=== PATIENT | female | born 1995 | race Two or more races ===

== ENCOUNTER 2017-10-05 15:48 | Emergency (ER) | payer MEDICAID ==
[~2017-10-05] VITALS: Ht 162.6 cm; Wt 84.8 kg
[2017-10-05] MEDS ORDERED: ONDANSETRON 2MG/ML, 2ML ONE (16:29)
[2017-10-05] MEDS ORDERED: PLEASE ENTER ALLERGIES MC SCH (16:30)
[2017-10-05] MEDS ORDERED: SODIUM CHLORIDE 0.9% 1,000ML IVBOLUS ONE (16:30)
[2017-10-05] MEDS ORDERED: MORPHINE SULFATE 4 MG/ML, 1ML IVPush PRN (16:30)
[2017-10-05] MEDS ORDERED: ONDANSETRON 2MG/ML, 2ML IVPush ONE (16:30)
[2017-10-05] MEDS ORDERED: SODIUM CHLORIDE FLUSH 10ML SYR IVF ONE (16:30)
[2017-10-05] MEDS ORDERED: MORPHINE SULFATE 4 MG/ML, 1ML ONE (16:30)
[2017-10-05 16:33] LABS: BASOPHILS # (AUTO) 0.01 x10^3/uL (0-0.3); BASOPHILS % (AUTO) 0 % (0-1); EOSINOPHILS # (AUTO) 0.04 x10^3/uL (0-0.8); EOSINOPHILS % (AUTO) 0 % (1-7); LYMPHOCYTES # (AUTO) 0.69 x10^3/uL (1-6.1); LYMPHOCYTES % (AUTO) 6 % (22-44); MD NO; MEAN CORPUSCULAR HGB CONC 33.8 g/dL (32.4-35.8); MEAN CORPUSCULAR VOLUME 91.6 fL (80-100); MEAN PLATELET VOLUME 7.9 fL (7.4-10.4); MONOCYTES % (AUTO) 3 % (2-9); NEUTROPHILS # (AUTO) 10.67 x10^3/uL (1.8-8.0); NEUTROPHILS % (AUTO) 91 % (42-75); PLATELET COUNT 270 x10^3/uL (130-400); RED BLOOD COUNT 4.89 x10^6/uL (3.82-5.3); RED CELL DISTRIBUTION WIDTH 12.6 % (9.6-15.2)
[2017-10-05 16:48] LABS: ALANINE AMINOTRANSFERASE 22 U/L (12-78); ALBUMIN 3.9 g/dL (3.4-5.0); ANION GAP 8 mmol/L (5-15); CALCIUM 9.1 mg/dL (8.5-10.1); CHLORIDE 108 mmol/L (98-107); CREATININE 0.98 mg/dL (0.55-1.02)
[2017-10-05 16:53] LABS: ALKALINE PHOSPHATASE 68 U/L (45-117); BILIRUBIN,TOTAL 0.6 mg/dL (0.2-1.0)
[2017-10-05 18:02] LABS: MICROSCOPIC NOT IND
[2017-10-05 18:05] LABS: CULTURE INDICATED? NO
[2017-10-05 18:45] VITALS: BP 117/69
== END 2017-10-05 18:48 | disposition home or self-care (01) ==
LOC: ED 17:03
DX: N93.8 Other specified abnormal uterine and vaginal bleeding (principal); R42 Dizziness and giddiness
CPT/HCPCS: 36415; 76830; 80053; 81003; 83690; 84703; 85025; 96361; 96374; 96375; 99285; J2405; J7030

== ENCOUNTER 2017-12-31 12:33 | Emergency (ER) | payer MEDICAID ==
[~2017-12-31] VITALS: Ht 162.6 cm; Wt 85.5 kg
[2017-12-31 12:46] VITALS: BP 114/79
[2017-12-31] MEDS ORDERED: ACETAMINOPHEN 325 MG TABLET ONE (13:18)
[2017-12-31] MEDS ORDERED: METHOCARBAMOL 750 MG TABLET ONE (13:18)
[2017-12-31] MEDS ORDERED: METHOCARBAMOL 750 MG TABLET PO ONE (13:30)
[2017-12-31] MEDS ORDERED: ACETAMINOPHEN 325 MG TABLET PO ONE (13:30)
== END 2017-12-31 13:09 | disposition home or self-care (01) ==
LOC: ED 13:03
DX: S39.012A Strain of muscle, fascia and tendon of lower back, initial encounter (principal); S66.511A Strain of intrinsic muscle, fascia and tendon of left index finger at wrist and hand level, initial encounter; Z88.8 Allergy status to other drugs, medicaments and biological substances; X50.9XXA Other and unspecified overexertion or strenuous movements or postures, initial encounter; Y93.K1 Activity, walking an animal; Y92.89 Other specified places as the place of occurrence of the external cause; Y99.8 Other external cause status
CPT/HCPCS: 72072; 99283

== ENCOUNTER 2019-05-28 10:12 | Emergency (ER) | payer BC, MEDICAID ==
[~2019-05-28] VITALS: Ht 165.1 cm; Wt 80.3 kg
--- NOTE | 2019-05-28 10:32 | NUR ---
THIS IS A 23 YO F W/ C/O CP 11/01 THAT STARTED IN MID UPPR BACK BUT NOW PRESENT IN LT CHEST. STARTED AT APPROX 0730. PT REPORTS PAIN IS NOW 09/01. REPORTS SOME SOB. DENIES N/V/PALPITATIONS. BP EQUAL BILAT. VS STABLE.CONNECTED TO ALL MONITORING. PT IS RESTING ON [employer] W/ CALL LIGHT IN REACH. DENIES FURTHER NEEDS AT THIS TIME.
[2019-05-28] MEDS ORDERED: KETOROLAC 30 MG/1 ML IM/IV ONE (11:30)
[2019-05-28] MEDS ORDERED: MAALOX/HYOSCYAMINE/LIDOCAINE 45 ML BTL PO ONE (11:30)
[2019-05-28] MEDS ORDERED: KETOROLAC 30 MG/1 ML ONE (11:33)
[2019-05-28] MEDS ORDERED: MAALOX/HYOSCYAMINE/LIDOCAINE 45 ML BTL ONE (11:55)
--- NOTE | 2019-05-28 11:58 | NUR ---
TASK RN, ASSISTING PRIMARY. GI COCKTAIL GIVEN PER ERP ORDER. PT RATES PAIN AT 4/10 AT THIS TIME. CALL LIGHT WITHIN REACH. FAMILY AT BS.
[2019-05-28 12:01] LABS: BASOPHILS # (AUTO) 0.03 x10^3/uL (0-0.1); BASOPHILS % (AUTO) 0 % (0-1); EOSINOPHILS # (AUTO) 0.13 x10^3/uL (0-0.4); EOSINOPHILS % (AUTO) 2 % (1-7); LYMPHOCYTES # (AUTO) 2.13 x10^3/uL (1-3.4); LYMPHOCYTES % (AUTO) 25 % (22-44); MD NO; MEAN CORPUSCULAR HEMOGLOBIN 31.5 pg (27.0-34.8); MEAN CORPUSCULAR HGB CONC 33.7 g/dL (32.4-35.8); MEAN CORPUSCULAR VOLUME 93.4 fL (80-100); MEAN PLATELET VOLUME 8.7 fL (7.4-10.4); MONOCYTES % (AUTO) 5 % (2-9); NEUTROPHILS # (AUTO) 6.04 x10^3/uL (1.8-6.8); NEUTROPHILS % (AUTO) 69 % (42-75); PLATELET COUNT 294 x10^3/uL (130-400); RED BLOOD COUNT 4.46 x10^6/uL (3.82-5.3); RED CELL DISTRIBUTION WIDTH 12.5 % (9.6-15.2)
[2019-05-28 12:17] LABS: ALBUMIN 3.8 g/dL (3.4-5.0); ANION GAP 7 mmol/L (5-15); CALCIUM 8.7 mg/dL (8.5-10.1); CHLORIDE 107 mmol/L (98-107)
[2019-05-28 12:25] LABS: ALANINE AMINOTRANSFERASE 25 U/L (12-78); ALKALINE PHOSPHATASE 54 U/L (45-117); BILIRUBIN,TOTAL 0.2 mg/dL (0.2-1.0); CREATININE 0.91 mg/dL (0.55-1.02); TOTAL PROTEIN 7.6 g/dL (6.4-8.2); TROPONIN I < 0.015 ng/mL (0.000-0.045)
--- NOTE | 2019-05-28 13:51 | NUR ---
CARE FOR DC ONLY PROVIDED. PT SITTING UP ON GURNEY, NO ACUTE DISTRESS NOTED. PT STATES "FEELS BETTER" NO IV TO DC. REVIEWED DC INSTRUCTIONS WITH PT, UNDERSTANDING VERBALIZED. PT LEFT AMB, GAIT STEADY.
[2019-05-28 13:52] VITALS: BP 115/60
== END 2019-05-28 13:54 | disposition home or self-care (01) ==
LOC: ED 13:40
DX: R07.2 Precordial pain (principal); R06.02 Shortness of breath; R94.31 Abnormal electrocardiogram [ECG] [EKG]
CPT/HCPCS: 36415; 71045; 80053; 83880; 84484; 85025; 93005; 96374; 99285; J1885

== ENCOUNTER 2019-10-20 14:33 | Emergency (ER) | payer BC ==
[~2019-10-20] VITALS: Ht 165.1 cm; Wt 89.7 kg
[2019-10-20 15:17] LABS: BASOPHILS # (AUTO) 0.05 x10^3/uL (0-0.1); BASOPHILS % (AUTO) 1 % (0-1); EOSINOPHILS # (AUTO) 0.19 x10^3/uL (0-0.4); EOSINOPHILS % (AUTO) 2 % (1-7); LYMPHOCYTES # (AUTO) 2.67 x10^3/uL (1-3.4); LYMPHOCYTES % (AUTO) 25 % (22-44); MD NO; MEAN CORPUSCULAR HEMOGLOBIN 31.4 pg (27.0-34.8); MEAN CORPUSCULAR HGB CONC 33.3 g/dL (32.4-35.8); MONOCYTES # (AUTO) 0.74 x10^3/uL (0.2-0.8); MONOCYTES % (AUTO) 7 % (2-9); NEUTROPHILS # (AUTO) 7.24 x10^3/uL (1.8-6.8); NEUTROPHILS % (AUTO) 67 % (42-75); PLATELET COUNT 304 x10^3/uL (130-400); RED BLOOD COUNT 4.47 x10^6/uL (3.82-5.3); RED CELL DISTRIBUTION WIDTH 12.2 % (9.6-15.2)
[2019-10-20 15:30] LABS: ALBUMIN 3.6 g/dL (3.4-5.0); ANION GAP 7 mmol/L (5-15); CALCIUM 9.1 mg/dL (8.5-10.1); CHLORIDE 109 mmol/L (98-107)
[2019-10-20 15:34] LABS: MICROSCOPIC INDICATED
[2019-10-20 15:49] LABS: ALANINE AMINOTRANSFERASE 39 U/L (12-78); ALKALINE PHOSPHATASE 44 U/L (45-117); BILIRUBIN,TOTAL 0.2 mg/dL (0.2-1.0); CREATININE 0.69 mg/dL (0.55-1.02); TOTAL PROTEIN 7.6 g/dL (6.4-8.2)
[2019-10-20 15:55] VITALS: BP 107/57
== END 2019-10-20 17:39 | disposition home or self-care (01) ==
LOC: ED 16:23
DX: O26.891 Other specified pregnancy related conditions, first trimester (principal); R10.30 Lower abdominal pain, unspecified; Z3A.00 Weeks of gestation of pregnancy not specified
CPT/HCPCS: 36415; 76801; 80053; 81001; 84702; 85025; 87077; 87086; 87186; 99284

== ENCOUNTER 2019-10-23 14:10 | Emergency (ER) | payer BC ==
[~2019-10-23] VITALS: Ht 165.1 cm; Wt 89.9 kg
--- NOTE | 2019-10-23 14:58 | NUR ---
PROBATION COUNSELOR: NA X 1
--- NOTE | 2019-10-23 15:01 | NUR ---
SENIOR BOOKKEEPER: PT TO ROOM FROM LOBBY AT THIS TIME. NADN. PT AMBULATORY WITH STEADY GAIT
--- NOTE | 2019-10-23 15:13 | NUR ---
PT AMBULATORY TO ROOM 6 W/ C/O CRAMPING. PT STATES SHE IS CURRENTLY 5 WEEKS AND IS HAVING CRAMPING. DENIES VB/DC. PT STATES SHE WAS HERE 2 DAYS AGO FOR SAME. PT RESTING ON KOKI. ADDISON.
[2019-10-23 15:25] LABS: BASOPHILS # (AUTO) 0.02 x10^3/uL (0-0.1); BASOPHILS % (AUTO) 0 % (0-1); EOSINOPHILS # (AUTO) 0.15 x10^3/uL (0-0.4); EOSINOPHILS % (AUTO) 2 % (1-7); LYMPHOCYTES # (AUTO) 2.11 x10^3/uL (1-3.4); LYMPHOCYTES % (AUTO) 21 % (22-44); MD NO; MEAN CORPUSCULAR HEMOGLOBIN 30.9 pg (27.0-34.8); MEAN CORPUSCULAR HGB CONC 32.8 g/dL (32.4-35.8); MEAN PLATELET VOLUME 8.1 fL (7.4-10.4); MONOCYTES # (AUTO) 0.11 x10^3/uL (0.2-0.8); MONOCYTES % (AUTO) 1 % (2-9); NEUTROPHILS # (AUTO) 7.68 x10^3/uL (1.8-6.8); NEUTROPHILS % (AUTO) 76 % (42-75); PLATELET COUNT 271 x10^3/uL (130-400); RED BLOOD COUNT 3.99 x10^6/uL (3.82-5.3); RED CELL DISTRIBUTION WIDTH 12.8 % (9.6-15.2)
[2019-10-23 15:34] LABS: ALBUMIN 3.4 g/dL (3.4-5.0); ANION GAP 5 mmol/L (5-15); CALCIUM 8.6 mg/dL (8.5-10.1); CHLORIDE 113 mmol/L (98-107); CREATININE 0.72 mg/dL (0.55-1.02)
[2019-10-23 15:39] VITALS: BP 110/52
--- NOTE | 2019-10-23 16:03 | NUR ---
PT CHART REVIEWED AND PLACED FOR RECHECK.
[2019-10-23 17:41] LABS: MICROSCOPIC INDICATED
== END 2019-10-23 17:35 | disposition home or self-care (01) ==
LOC: ED 15:36
DX: O20.0 Threatened abortion (principal); R10.84 Generalized abdominal pain; Z3A.01 Less than 8 weeks gestation of pregnancy
CPT/HCPCS: 36415; 76801; 80048; 81001; 82040; 84702; 85025; 99284

== ENCOUNTER 2020-06-11 03:51 | Inpatient (IN) | payer MEDICAID ==
[~2020-06-11] VITALS: Ht 165.1 cm; Wt 108.2 kg
[~2020-06-11 03:51] MED LIST: PREN1TAB60 PO
[2020-06-11 04:19] VITALS: BP 136/76
[2020-06-11] MEDS ORDERED: NEWBORN KIT ONE (05:49)
[2020-06-11] MEDS ORDERED: TERBUTALINE 1 MG/ML, 1ML IVPush PRN (06:00)
[2020-06-11] MEDS: D5%-LACTATED RINGERS 1,000 ML IV SCH ×3 (06:00→22:00)
[2020-06-11] MEDS ORDERED: OXYTOCIN 30U/ 0.9% NaCL 500ML 500 ML IV ONE (06:00)
[2020-06-11] MEDS ORDERED: TERBUTALINE 1 MG/ML, 1ML SQ PRN (06:00)
[2020-06-11] MEDS ORDERED: METOCLOPRAMIDE 5 MG/ML, 2ML IVPush PRN (06:00)
[2020-06-11] MEDS ORDERED: ONDANSETRON 2MG/ML, 2ML IVPush PRN (06:00)
[2020-06-11] MEDS ORDERED: FENTANYL PF 100 MCG/2ML IV PRN (06:00)
[2020-06-11] MEDS ORDERED: OXYTOCIN 30U/ 0.9% NaCL 500ML 500 ML IV PRN (06:00)
[2020-06-11] MEDS ORDERED: CALCIUM CARBONATE 500 MG TAB.CHEW PO PRN (06:00)
[2020-06-11] MEDS ORDERED: LACTATED RINGERS 1,000 ML IVBOLUS PRN (06:00)
[2020-06-11] MEDS ORDERED: SODIUM CITRATE/CITRIC ACID 30 ML UDC PO PRN (06:00)
[2020-06-11 06:48] LABS: BASOPHILS % (AUTO) 0 % (0-1); EOSINOPHILS % (AUTO) 3 % (1-7); LYMPHOCYTES % (AUTO) 20 % (22-44); MEAN CORPUSCULAR HEMOGLOBIN 32.9 pg (27.0-34.8); MEAN CORPUSCULAR HGB CONC 34.6 g/dL (32.4-35.8); MEAN PLATELET VOLUME 8.7 fL (7.4-10.4); MONOCYTES % (AUTO) 6 % (2-9); NEUTROPHILS % (AUTO) 71 % (42-75); PLATELET COUNT 272 x10^3/uL (130-400); RED BLOOD COUNT 3.67 x10^6/uL (3.82-5.3); RED CELL DISTRIBUTION WIDTH 13.9 % (9.6-15.2)
[2020-06-11 06:50] LABS: MD NO
[2020-06-11] MEDS ORDERED: MISOPROSTOL 200 MCG TABLET ONE (06:50)
[2020-06-11] MEDS ORDERED: LIDOCAINE 1%, 20ML ONE (06:50)
[2020-06-11] MEDS: LACTATED RINGERS 1,000 ML IV SCH ×2 (13:21→20:41)
[2020-06-11] MEDS: FENTANYL PF 100 MCG/2ML IVPush PRN ×2 (18:37→22:29)
[2020-06-12] MEDS: FENTANYL PF 100 MCG/2ML IVPush PRN ×2 (01:33→03:08)
[2020-06-12] MEDS: LACTATED RINGERS 1,000 ML IV SCH ×7 (03:51→22:00)
[2020-06-12] MEDS ORDERED: BUPIVACAINE 0.25% ONE (03:53)
[2020-06-12] MEDS ORDERED: FENTANYL/BUPIV./NS/PF 250 ML EPIDCONT ONE (03:53)
[2020-06-12] MEDS ORDERED: NALOXONE 0.4 MG/ML, 1ML IVPush PRN (05:30)
[2020-06-12] MEDS ORDERED: FENTANYL/BUPIV./NS/PF 250 ML EPIDCONT SCH (05:30)
[2020-06-12] MEDS ORDERED: LACTATED RINGERS 1,000 ML IVBOLUS PRN (05:30)
[2020-06-12] MEDS ORDERED: DIPHENHYDRAMINE 50 MG/ML, 1ML IVPush PRN (05:30)
[2020-06-12] MEDS ORDERED: EPHEDRINE 50 MG/ML, 1ML IVPush PRN ×2 (05:30→08:30)
[2020-06-12] MEDS ORDERED: ONDANSETRON 2MG/ML, 2ML IVPush PRN ×2 (05:30→08:30)
[2020-06-12] MEDS: D5%-LACTATED RINGERS 1,000 ML IV SCH ×3 (06:00→22:00)
[2020-06-12] MEDS ORDERED: SODIUM CITRATE/CITRIC ACID 15 ML UDC ONE (06:31)
[2020-06-12] MEDS ORDERED: EPHEDRINE 50 MG/ML, 1ML ONE (07:07)
[2020-06-12] MEDS ORDERED: OXYTOCIN 10 UNITS/ML, 1ML ONE (07:07)
[2020-06-12] MEDS ORDERED: FENTANYL PF 100 MCG/2ML ONE ×2 (07:07→07:27)
[2020-06-12] MEDS ORDERED: DEXAMETHASONE 4 MG/ML, 1ML ONE (07:07)
[2020-06-12] MEDS ORDERED: PHENYLEPHRINE 10 MG/ML ONE (07:07)
[2020-06-12] MEDS ORDERED: ONDANSETRON 2MG/ML, 2ML ONE (07:07)
[2020-06-12] MEDS ORDERED: PROPOFOL 10 MG/ML, 20ML ONE (07:07)
[2020-06-12] MEDS ORDERED: CEFAZOLIN 1,000 MG ONE (07:07)
[2020-06-12] MEDS ORDERED: SUCCINYLCHOLINE 20 MG/ML, 10ML ONE (07:07)
[2020-06-12] MEDS ORDERED: KETOROLAC 30 MG/1 ML ONE ×2 (07:07→14:41)
[2020-06-12] MEDS ORDERED: morphine SULFATE/PF 0.5 MG/ML, 10ML ONE (07:44)
[2020-06-12] MEDS: OXYTOCIN 30U/ 0.9% NaCL 500ML 500 ML IV SCH ×2 (08:00→18:00)
[2020-06-12] MEDS ORDERED: CARBOPROST TROMETHAMINE 250 MCG/ML, 1ML IM PRN (08:00)
[2020-06-12] MEDS ORDERED: MISOPROSTOL 200 MCG TABLET PR PRN (08:00)
[2020-06-12] MEDS ORDERED: HYDROmorphone 2 MG/ML, 1ML ONE (08:28)
[2020-06-12] MEDS ORDERED: ALBUTEROL SULFATE 2.5 MG/3 ML NPPB PRN (08:30)
[2020-06-12] MEDS ORDERED: MEPERIDINE/PF 25MG/0.5ML IVPush PRN (08:30)
[2020-06-12] MEDS ORDERED: HYDROcodone/APAP 7.5-325MG/15ML UDC PO PRN (08:30)
[2020-06-12] MEDS ORDERED: PROMETHAZINE 25 MG/ML, 1ML IV PRN (08:30)
[2020-06-12] MEDS ORDERED: HYDROmorphone 2 MG/ML, 1ML IVPush PRN (08:30)
[2020-06-12] MEDS ORDERED: METOPROLOL 1 MG/ML, 5ML IV PRN (08:30)
[2020-06-12] MEDS ORDERED: hydrALAzine 20 MG/ML, 1ML IV PRN (08:30)
[2020-06-12] MEDS ORDERED: MIDAZOLAM 1 MG/ML, 2ML IV PRN (08:30)
[2020-06-12] MEDS ORDERED: OXYcodone 5 MG/5 ML ORAL.SOL UDC PO PRN (08:30)
[2020-06-12] MEDS ORDERED: FENTANYL PF 100 MCG/2ML IV PRN (08:30)
[2020-06-12] MEDS ORDERED: LABETALOL 5MG/ML, 20ML IV PRN (08:30)
[2020-06-12] MEDS: PRENATAL VIT/IRON/FA 1 EACH TABLET PO SCH (09:00)
[2020-06-12] MEDS: OXYcodone/APAP 5/325MG TABLET PO PRN ×2 (09:57→18:28)
[2020-06-12 10:40] VITALS: BP 136/87
[2020-06-12] MEDS: KETOROLAC 30 MG/1 ML IVPush SCH ×2 (14:55→21:11)
[2020-06-12 15:01] VITALS: BP 120/77
[2020-06-12 19:50] VITALS: BP 129/85
[2020-06-12 20:24] LABS: BASOPHILS % (AUTO) 0 % (0-1); EOSINOPHILS % (AUTO) 0 % (1-7); LYMPHOCYTES % (AUTO) 18 % (22-44); MEAN CORPUSCULAR HEMOGLOBIN 32.5 pg (27.0-34.8); MEAN CORPUSCULAR HGB CONC 34.3 g/dL (32.4-35.8); MEAN PLATELET VOLUME 8.5 fL (7.4-10.4); MONOCYTES % (AUTO) 5 % (2-9); NEUTROPHILS % (AUTO) 76 % (42-75); PLATELET COUNT 219 x10^3/uL (130-400); RED BLOOD COUNT 3.09 x10^6/uL (3.82-5.3)
[2020-06-12] MEDS: SIMETHICONE 80 MG CHEW TAB PO PRN (20:24)
[2020-06-12 20:30] LABS: MD NO
[2020-06-13 00:20] VITALS: BP 124/78
[2020-06-13] MEDS: OXYcodone/APAP 5/325MG TABLET PO PRN ×5 (00:23→23:28)
[2020-06-13] MEDS: KETOROLAC 30 MG/1 ML IVPush SCH ×4 (03:08→21:00)
[2020-06-13] MEDS: OXYTOCIN 30U/ 0.9% NaCL 500ML 500 ML IV SCH ×2 (04:00→14:17)
[2020-06-13 05:30] VITALS: BP 128/83
[2020-06-13] MEDS: LACTATED RINGERS 1,000 ML IV SCH ×3 (06:00→22:00)
[2020-06-13 07:30] VITALS: BP 130/76
[2020-06-13] MEDS: DOCUSATE 100 MG CAPSULE PO PRN ×2 (08:09→23:27)
[2020-06-13] MEDS: PRENATAL VIT/IRON/FA 1 EACH TABLET PO SCH (08:09)
[2020-06-13] MEDS: SIMETHICONE 80 MG CHEW TAB PO PRN (18:32)
[2020-06-13 20:00] VITALS: BP 132/85
[2020-06-13] MEDS: IBUPROFEN 800 MG TABLET PO PRN (23:27)
[2020-06-14] MEDS: OXYcodone/APAP 5/325MG TABLET PO PRN ×4 (06:45→17:16)
[2020-06-14 08:30] VITALS: BP 138/87
[2020-06-14] MEDS: DOCUSATE 100 MG CAPSULE PO PRN (09:05)
[2020-06-14] MEDS: IBUPROFEN 800 MG TABLET PO PRN ×2 (09:05→17:15)
[2020-06-14] MEDS: PRENATAL VIT/IRON/FA 1 EACH TABLET PO SCH (09:05)
[2020-06-14 21:00] VITALS: BP 133/84
[2020-06-15] MEDS: OXYcodone/APAP 5/325MG TABLET PO PRN ×4 (00:40→17:12)
[2020-06-15 07:30] VITALS: BP 131/85
[2020-06-15] MEDS: IBUPROFEN 800 MG TABLET PO PRN ×2 (07:49→17:10)
[2020-06-15] MEDS: SIMETHICONE 80 MG CHEW TAB PO PRN ×2 (07:49→17:10)
[2020-06-15] MEDS: DOCUSATE 100 MG CAPSULE PO PRN (07:49)
[2020-06-15] MEDS: PRENATAL VIT/IRON/FA 1 EACH TABLET PO SCH (07:49)
[2020-06-15] MEDS ORDERED: DOCU-131 PO ×2 (18:33)
[2020-06-15] MEDS ORDERED: IBUP-1223 PO ×2 (18:33)
[2020-06-15] MEDS ORDERED: OXYC1TAB14 PO ×2 (18:33)
[2020-06-15 20:00] VITALS: BP 119/71
[2020-06-15] MEDS ORDERED: DIPH,PERTUSS(ACELL),TET VAC/PF NC IM-VACC ONE ×4 (21:24→22:00)
[2020-06-16 09:20] VITALS: BP 123/75
[2020-06-16] MEDS: IBUPROFEN 800 MG TABLET PO PRN ×2 (13:56→22:12)
[2020-06-16] MEDS: OXYcodone/APAP 5/325MG TABLET PO PRN ×4 (13:56→23:53)
[2020-06-16] MEDS: PRENATAL VIT/IRON/FA 1 EACH TABLET PO SCH (14:00)
[2020-06-16] MEDS: DOCUSATE 100 MG CAPSULE PO PRN (14:00)
[2020-06-16] MEDS ORDERED: OXYC1TAB14 PO (17:25)
[2020-06-16] MEDS ORDERED: IBUP-1223 PO (17:25)
[2020-06-16] MEDS ORDERED: DOCU-131 PO (17:25)
== END 2020-06-16 23:59 | disposition home or self-care (01) | DRG 788 ==
LOC: LDOP 03:51 → LDIP 05:46 → 2NW 06-12 10:32
PROVIDERS: ADMIT Obstetrics & Gynecology; ATTEND Obstetrics & Gynecology
PROC: 10D00Z1 Extraction of Products of Conception, Low, Open Approach (ICD-10-PCS; principal; 2020-06-12)
DX: O77.0 Labor and delivery complicated by meconium in amniotic fluid (principal); Z37.0 Single live birth; Z3A.38 38 weeks gestation of pregnancy; Z20.822 Contact with and (suspected) exposure to COVID-19; Z23 Encounter for immunization
CPT/HCPCS: 36415; 85025; 86592; 86850; 86900; 87635; 88307; 90715; G0378; J0690; J1100; J1170; J1885; J2274; J2405; J2704; J3010; J0330; J2370; J2590; J7120